=== PATIENT | female | born 1995 | race Hispanic/Latino ===

== ENCOUNTER 2022-09-05 06:55 | Emergency (ER) | payer SELFPAY ==
[~2022-09-05] VITALS: Ht 152.4 cm; Wt 63.0 kg
[2022-09-05 09:37] VITALS: BP 127/72
== END 2022-09-05 09:48 | disposition home or self-care (01) | DRG 153 ==
LOC: ED 06:55
DX: J06.9 Acute upper respiratory infection, unspecified (principal); B97.89 Other viral agents as the cause of diseases classified elsewhere; Z20.822 Contact with and (suspected) exposure to COVID-19